=== PATIENT | male | born 1955 | race Caucasian/White ===

== ENCOUNTER 2019-09-25 14:48 | Emergency (ER) | payer BC, MEDICARE ==
[~2019-09-25] VITALS: Ht 165.1 cm; Wt 93.6 kg
[2019-09-25 14:50] VITALS: BP 150/78
--- NOTE | 2019-09-25 15:09 | NUR ---
THIS IS A 64 YO MALE COMING IN FOR HEADACHE, WAS AT URGENT CARE AND THEY SENT PATIENT HERE FOR HTN. PATIENT STATES HEADACHE STARTED THIS MORNING, AND IS UNUSUAL FOR HIM. PATIENT STATES HE HAS OCCASIONAL CHEST PAIN AT NIGHT THAT IS POSITIONAL. PATIENT STATES HE CURRENTLY DOES NOT HAVE CHEST PAIN, AND HEDACHE IS 2/10 PAIN. PATIENT PLACED ON [employer] FOR INTERMITTENT CHEST PAIN, NSR NOTED, CONTINUOUS SPO2 AT 94%, CYCLE BP Q30MIN. CALL LIGHT IN REACH, DENIES NEEDS AT THIS TIME.
--- NOTE | 2019-09-25 16:01 | NUR ---
Patient/Caregiver given discharge instructions and they have confirmed that they understand the instructions. Patient ambulatory with steady gait.
== END 2019-09-25 16:02 | disposition home or self-care (01) ==
LOC: ED 15:39
DX: G44.209 Tension-type headache, unspecified, not intractable (principal); I10 Essential (primary) hypertension
CPT/HCPCS: 36415; 80047; 93005; 99284